=== PATIENT | male | born 1965 | race Caucasian/White ===

== ENCOUNTER 2025-02-01 08:12 | Outpatient (REF) | payer OTHER, SELFPAY ==
--- OUTSIDE RECORDS SUMMARY | 2025-02-01 08:32 | XMS_ITS | Encounter Summary ---
Author Organization [facility] Address [address] [facility] [address] [place] [address] Phone Care Team Providers Care Wood Buffer Name Role Phone Glenny Beckford MD Primary Care Provider [phone] Reason for Visit * Reason Onset Date Comments Med Refill 12/18/2024 Encounter Details Date Type Department Care Team (Late st Contact Info) Description 12/18/2024 Refill [facility] [address] [place] [phone] Kevin Brooks MD [address] [facility] [address] [place] [phone] Social History Tobacco Use Types Packs/Day Years Used Date Smoking Tobacco: Never Alcohol Use Standard Drinks/Week Comments Yes 0 (1 standard drink = 0.6 oz pur e alcohol) Sex and Gender Information Value Date Recorded Sex Assigned at Male 05/31/2023 3:08 PM EDT Legal Sex Male 5:25 PM EST Gender Identity Male 05/31/2023 3:08 PM EDT Sexual Orientation Straight 05/31/2023 3: 08 PM EDT documented as of this encounter Miscellaneous Notes * Telephone Encounter - Dalia Velasquez - 01/02/2025 3:22 PM EST RX ALREADY SENT TO THE PHARMACY ON 12/24/24 . documented in this encounter Plan of Treatment Upcoming Encounters Date Type Department Care Team (Late st Contact Info) Description 02/12/2025 1:00 PM EDT Office Visit [facility] [address] [facility] [address] [place] [phone] Kevin Brooks MD [address] [address] documented as of this encounter Visit Diagnoses Not on filedocumented in this encounter Care Teams Wood Buffer Relationship Specialty Start Date End Date Glenny Beckford MD [address] [facility] [address] [place] [address] PCP - General Cardiology 01/26/23 documented as of this encounter
--- OUTSIDE RECORDS SUMMARY | 2025-02-01 08:32 | XMS_ITS | Clinical Summary ---
Author Organization [facility] Address [address] [facility] [address] [place] [address] Phone Care Team Providers Care Green Prize Packer Name Role Phone Glenny Beckford MD Primary Care Provider [phone] Allergies Active Allergy Reactions Criticality Noted Date Comments Carisoprodol 02/03/2023 Meloxicam Rash Low 02/04/2023 Penicillin G 02/03/2023 Sulfa Antibiotics 02/03/2023 Medications Xarelto 20 MG tablet 3 Active morphine (MSIR) 30 MG tablet 45 mg in the morning. 3 Active carvedilol (COREG) 12.5 MG tablet 3 Active hydrALAZINE 50 MG tablet Take 50 mg by mouth in the morning and 50 mg in the evening and 50 mg before bedtime. 2 Active NIFEdipine XL (PROCARDIA XL) 90 MG 24 hr tablet 3 Active furosemide (LASIX) 20 MG tablet 3 Active losartan (COZAAR) 100 MG tablet 3 Active metFORMIN (GLUCOPHAGE) 500 MG tablet 3 Active glipiZIDE (GLUCOTROL) 5 MG tablet 10 mg 3 Active Semaglutide,0.25 or 0.5MG/DOS, (Ozempic, 0.25 or 0.5 MG/DOSE,) 2 MG/1.5ML solution pen-injector See Instructions, INJECT 0.5MG UNDER THE SKIN ONCE WEEKLY, # 1.5 mL, 5 Refills, 12/28/22 14:08:00 EST, [facility], 28, INJECT 0.5MG UNDER THE SKIN ONCE WEEKLY, 177, cm, 10/29/22 14:06:00 EST, Height, 108.85, kg, 10/29/22 14:06:00 EST, Dry Weight 3 Active gabapentin (NEURONTIN) 600 MG tablet Take 1 tablet by mouth 2 Active allopurinol (ZYLOPRIM) 100 MG tablet 3 Active budesonide-formo terol (SYMBICORT) 160-4.5 MCG/ACT inhaler 3 Active atorvastatin (LIPITOR) 20 MG tablet Take 1 tablet by mouth 2 Active dicyclomine (BENTYL) 10 MG capsule Take 10 mg by mouth 4 (four) times a day (before meals and nightly) Active isosorbide mononitrate (IMDUR) 30 MG 24 hr tablet 3 Active furosemide (LASIX) 40 MG tablet TAKE ONE TABLET BY MOUTH EVERY MORNING AND TAKE ONE TABLET BY MOUTH EVERY EVENING 60 tablet 11 4 Active furosemide (Lasix) 40 MG tablet Take 1 tablet (40 mg total) by mouth in the morning and 1 tablet (40 mg total) in the evening. 60 tablet 11 4 05/25/20 25 Active spironolactone (Aldactone) 50 MG tablet Take 1 tablet (50 mg total) by mouth 1 (one) time each day 90 tablet 2 5 01/17/20 26 Active spironolactone (ALDACTONE) 50 MG tablet TAKE ONE TABLET BY MOUTH EVERY DAY 90 tablet 2 5 Active Active Problems Problem Noted Date Diagnosed Date Hyperlipidemia 04/26/2023 Aortic valve stenosis 04/26/2023 Severe obesity 04/20/2023 Obese class I 04/20/2023 COVID-19 04/20/2023 Cervical radiculopathy 04/20/2023 Hypertensive disorder 02/04/2023 Uncomplicated mild persistent asthma 01/24/2023 Irritable bowel syndrome 01/24/2023 Deep venous thrombosis 01/24/2023 Acute antecubital DVT 08/22/2014 Postphlebetic syndrome with other complication 0 08/13/2014 Hypertension 08/13/2014 Hemochromatosis 08/13/2014 Edema 08/13/2014 Chronic pain syndrome 08/13/2014 Asthma 08/13/2014 Pure hyperglyceridemia 03/28/2013 Type 2 diabetes mellitus without complication Lumbar disc prolapse with radiculopathy 10/07/20 06 Encounters Date Type Department Care Team Description 12/23/2024 Refill [facility] [address] [facility] [place] [address] Kevin Brooks MD 12/18/2024 Refill [facility] [address] [facility] [place] [address] Kevin Brooks MD from Last 3 Months Immunizations Name Administration Dates Next Due Influenza (IM) Preservative Free 09/07/2021 Influenza, Unspecified 10/07/2022,2020,09/11/2020,09/21/2018 ,09/22/2017,09/10/2016,08/21/2014, 3,07/19/2012,01/21/2009 MMR 05/03/2012 Moderna SARS-COV-2 09/24/2021,03/16/2021, 021 Pneumococcal Polysaccharide 04/15/2010 SARS-CoV-2, Unspecified 10/22/2022 Shingrix 06/10/2020,11/01/2019 Td, Unspecified 10/07/1998 Social History Tobacco Use Types Packs/Day Years Used Date Smoking Tobacco: Never Tobacco Cessation:Counseling Given: Not Answered Alcohol Use Standard Drinks/Week Comments Yes 0 (1 standard drink = 0.6 oz pur e alcohol) Sex and Gender Information Value Date Recorded Sex Assigned at Male 05/31/2023 3:08 PM EDT Legal Sex Male 5:25 PM EST Gender Identity Male 05/31/2023 3:08 PM EDT Sexual Orientation Straight 05/31/2023 3: 08 PM EDT Last Filed Vital Signs Vital Sign Reading Time Taken Comments Blood Pressure 131/64 05/08/2024 2:09 PM EDT Pulse 71 05/08/2024 2:09 PM EDT Temperature - - Respiratory Rate - - Oxygen Saturation 97% 05/08/2024 2:09 PM EDT Inhaled Oxygen Concentration - - Weight 108 kg (237 lb 3.2 oz) 05/08/2024 2:09 PM EDT Height - - Body Mass Index - - Plan of Treatment Upcoming Encounters Date Type Department Care Team (Late st Contact Info) Description 02/12/2025 1:00 PM EDT Office Visit [facility] P.. [address] [phone] Kevin Brooks MD [address] [address] Health Maintenance Due Date Last Done Comments Pneumococcal Vaccine: Pediatrics (0 to 5 Years) and At-Risk Patients (6 to 64 Years) (2 of 2 - PCV) 04/15/2011 04/15/2010 Colorectal Cancer Screening: Annual FOBT 2013 Colorectal Cancer Screening: Colonoscopy 2013 Colorectal Cancer Screening: Sigmoidoscopy 2013 Diabetes: Ophthalmology Exam 02/03/2023 Diabetes: Pedal Pulse Checked 02/03/2023 Diabetes: Sensory Foot Exam 02/03/2023 Diabetes: Visual Foot Exam 02/03/2023 Diabetes: Hemoglobin A1C 04/23/2023 01/24/2023 Influenza Vaccine (#1) 2024 2, 09/07/2021, 09/07/2021, Additional history exists Hepatitis B Vaccine Aged Out No longe r eligible based on patient's age to complete this topic Procedures Procedure Name Priority Date/Time Associated Diagnosis Comments EXT RESULT ENTRY Routine 01/24/2023 from Last 3 Months or Most Recently Relevant to Health Maintenance Results * (ABNORMAL) EXT RESULT ENTRY (01/24/2023) WBC 6.9 3.3 - 10.0 10*3/ML Red Blood Cell Count 4.28 Hemoglobin 14.1 13.5 - 17.5 Hematocrit 41.2 41.0 - 53.0 Platelets 219 150 - 399 10*3/UL MCV 96.3 82.0 - 108.0 Sodium 142 137 - 147 Potassium 4.6 3.4 - 5.5 Chloride 105.0 99.0 - 108.0 Anion Gap 8 <=30 MMOL/L Glucose 125 60 - 200 BUN 23(A) 4 - 21 mg/dL Creatinine 0.70 0.60 - 1.30 mg/dL Albumin 4.9 3.5 - 5.0 g/dL Calcium 9.7 8.7 - 10.7 mg/dL Hemoglobin A1C 5.5 4.0 - 6.0 01/24/2023 us Historical Provider LAB BLOOD ORDERABLES Ayleen l Result from Last 3 Months or Most Recently Relevant to Health Maintenance Insurance [facility] Care Teams Green Prize Packer Relationship Specialty Start Date End Date Glenny Beckford MD [address] [place] [address] PCP - General Cardiology 01/26/23
--- OUTSIDE RECORDS SUMMARY | 2025-02-01 08:33 | XMS_ITS | Clinical Summary ---
Author Organization [facility] [address] [facility] Address [address] [place] [address] Phone Care Team Providers Care Senior Web Developer Name Role Phone Elmer Lara MD Primary Care Provider [phone] Allergies Active Allergy Reactions Criticality Noted Date Comments Carisoprodol 02/03/2023 Doxazosin Low blood pressure 01/29/2025 Meloxicam Rash Low 02/04/2023 Penicillin G Unknown 02/02/2023 Sulfa (Sulfonamide Antibiotics) 11/28 Medications Xarelto 20 mg tablet See Instructions, TAKE ONE TABLET BY MOUTH DAILY WITH A MEAL, # 90 each, 3 Refills, Maintenance, 02/29/24 11:14:00 AM EDT, [email or web address], refill when needed, 180, cm, 02/29/24 11:04:00 EDT, Height, 107.5, kg, 02/29/24 11:04:00 EDT, Dry Weight 4 Active albuterol HFA (PROAIR HFA ; PROVENTIL HFA ; VENTOLIN HFA) 90 mcg/actuation inhaler 4 Active carvediloL (COREG) 12.5 mg tablet Take 1 tablet (12.5 mg total) by mouth. 4 Active dicyclomine (BENTYL) 10 mg capsule Take 2 capsules (20 mg total) by mouth. 3 Active furosemide (LASIX) 40 mg tablet 5 Active gabapentin (NEURONTIN) 600 mg tablet Take 1 tablet (600 mg total) by mouth. 4 Active glipiZIDE (GLUCOTROL) 5 mg tablet Take 1 tablet (5 mg total) by mouth. 4 Active hydrALAZINE (APRESOLINE) 50 mg tablet Take 1 tablet (50 mg total) by mouth. 4 Active isosorbide mononitrate (IMDUR) 30 mg 24 hr tablet Take 1 tablet (30 mg total) by mouth. 4 Active losartan (COZAAR) 100 mg tablet See Instructions, TAKE ONE TABLET BY MOUTH EVERY DAY, # 90 tablet, 3 Refills, 08/20/24 4:42:00 PM EDT, [email or web address], 180, cm, 06/11/24 14:07:00 EDT, Height, 106.8, kg, 06/11/24 14:07:00 EDT, Dry Weight 4 Active metFORMIN (GLUCOPHAGE) 500 mg tablet Take 2 tablets (1,000 mg total) by mouth. 4 Active Ozempic 0.25 mg or 0.5 mg (2 mg/3 mL) injection pen See Instructions, INJECT 0.5MG UNDER THE SKIN ONCE WEEKLY, # 3 mL, 5 Refills, Maintenance, 11/06/24 12:48:00 PM EST, [facility], 180, cm, 08/28/24 13:59:00 EDT, Height, 108.2, kg, 08/28/24 13:59:00 EDT, Dry Weight 4 Active spironolactone (ALDACTONE) 50 mg tablet Take 1 tablet (50 mg total) by mouth. 3 Active tiZANidine (ZANAFLEX) 2 mg tablet Take 1 tablet (2 mg total) by mouth. 3 Active allopurinoL (ZYLOPRIM) 100 mg tablet Take 1 tablet (100 mg total) by mouth. 4 01/13/20 Active Problems Problem Noted Date Diagnosed Date Diabetes mellitus type 2, uncomplicated 12/12/19 Hemochromatosis 12/12/2024 Assessment & Plan (12/12/2024 4:52 PM EST): Please contact [facility] hematology group to re-establish care and monitoring of this disease Phlebotomy as needed per their recommendations. Deep vein thrombosis (DVT) 12/12/2024 Hyperlipidemia 12/12/2024 Hypertension 12/12/2024 Irritable bowel syndrome 12/12/2024 Mild persistent asthma 12/12/2024 Herniation of lumbar intervertebral disc with ra diculopathy 12/12/2024 Chronic pain syndrome 12/12/2024 Aortic stenosis 12/12/2024 Protein S deficiency 12/12/2024 Postphlebitic syndrome 12/04/2024 Encounters Date Type Department Care Team Description 01/03/2025 Telephone Gastroenterology - [place] [address] [place] [phone] Vickie Edmonds LPN Anticoagulation (Colonoscopy on 02/04/[address] Sepulveda) 12/13/2024 Telephone Gastroenterology - [address] [facility] [address] [place] [phone] Margret Gomez MA 12/12/2024 1:40 PM EST Office Visit Gastroenterology - [address] [facility] [address] [place] [phone] Madisyn Gay PA Colon cancer screening (Primary Dx); Hereditary hemochromatosis (CMS/HCC) 12/12/2024 Telephone Gastroenterology - [address] [facility] [address] [place] [phone] Raymond Sepulveda MD 12/07/2024 Telephone Gastroenterology - [address] [facility] [address] [place] [phone] Madisyn Gay PA from Last 3 Months Surgical History Surgery Date Site/Laterality Comments COLONOSCOPY 10/22/2015 TAx2 recall 5 years Family History Medical History Relation Name Comments Colon polyps Brother Colon cancer Father Colon polyps Mother Relation Name Status Comments Brother Father Alive Mother Social History Tobacco Use Types Packs/Day Years Used Date Smoking Tobacco: Never Smokeless Tobacco: Never Alcohol Use Standard Drinks/Week Comments Yes 0 (1 standard drink = 0.6 oz pur e alcohol) occasional Sex and Gender Information Value Date Recorded Sex Assigned at Not on file Legal Sex Male 7:01 PM EST Gender Identity Not on file Sexual Orientation Not on file Obstetrics History Last Filed Vital Signs Vital Sign Reading Time Taken Comments Blood Pressure - - Pulse - - Temperature - - Respiratory Rate - - Oxygen Saturation - - Inhaled Oxygen Concentration - - Weight 108 kg (238 lb) 01/29/2025 8:00 AM EST Height 179.7 cm (5' 10.75 ) 01/29/2025 8:[address] Body Mass Index 33.43 01/29/2025 8:00 AM EST Plan of Treatment Upcoming Encounters Date Type Department Care Team (Late st Contact Info) Description 02/04/2025 9:30 AM EDT Hospital Encounter [facility] [address] [place] [address] Raymond Sepulveda MD [address] [address] Health Maintenance Due Date Last Done Comments Diabetes: Annual GFR (Glomerular Filtration Rate) 1964 Diabetes: Annual Foot Exam 1974 Diabetes: Annual Retina Eye Exam 1974 DTaP,Tdap,and Td Vaccines (2 - Td or Tdap) 10/07/2008 10/07/1998 Pneumococcal Vaccine: 50+ Years (2 of 2 - PCV) 04/15/2011 04/15/2010 Pneumococcal Vaccine: Pediatrics (0 to 5 Years) and At-Risk Patients (6 to 64 Years) (2 of 2 - PCV) 04/15/2011 04/15/2010 RSV Immunization Patients 60+ Years Old (1 - Risk 60-74 years 1-dose series) 2024 Cholesterol Screening (Lipid Panel) 12/04/2024 Colorectal Cancer Screening: Colonoscopy 12/04/2024 Depression Screening 12/04/2024 HIV Screening 12/04/2024 Hepatitis C Screening 12/04/2024 Social Influencers of Health Screening 12/04/2024 Diabetes: Annual Urine Albumin-Creatinine Ratio (uACR) 12/12/2024 Diabetes: Blood Sugar Control Test (HGBA1C) 12/12/2024 Hypertension/CHF/CAD Annual BMP Blood Test 12/12/2024 MMR Vaccines Aged Out 05/03/2012 No longer eligi ble based on patient's age to complete this topic Zoster Vaccines Completed 06/10/2020, 11/01/2019 COVID-19 Vaccine Completed 08/27/2024, , 10/22/2022, Additional history exists Influenza Vaccine Completed 09/17/2024, , 10/07/2022, Additional history exists HIB Vaccines Aged Out No longer eligi ble based on patient's age to complete this topic HPV Vaccines Aged Out No longer eligi ble based on patient's age to complete this topic Hepatitis A Vaccines Aged Out No long er eligible based on patient's age to complete this topic Hepatitis B Vaccines Aged Out No long er eligible based on patient's age to complete this topic IPV Vaccines Aged Out No longer eligi ble based on patient's age to complete this topic Meningococcal ACWY Vaccine Aged Out N o longer eligible based on patient's age to complete this topic Meningococcal B Vacine Aged Out No lo nger eligible based on patient's age to complete this topic RSV Immunization Patients Under 20 months Aged Out No longer eligible based on patient's age to complete this topic Varicella Vaccines Aged Out No longer eligible based on patient's age to complete this topic [facility] [place] [place] [address] [facility] Care Teams Senior Web Developer Relationship Specialty Start Date End Date Elmer Lara MD [address] [phone] PCP - General Internal Medicine 12/04/24
--- OUTSIDE RECORDS SUMMARY | 2025-02-01 08:33 | XMS_ITS | Encounter Summary ---
Author Organization [facility] Address [address] [place] [address] Care Team Providers Care Slab Lifting Engineer Name Role Phone Elmer Lara MD Primary Care Provider [phone] Reason for Visit * Reason Onset Date Comments Anticoagulation 01/03/[address] Sepulveda Encounter Details Date Type Department Care Team ([facility] st Contact Info) Description 01/03/2025 Telephone Gastroenterology - [place] [address] [facility] [address] [place] [address] Vickie Edmonds LPN Anticoagulation (Colonoscopy on 02/04/[address] Sepulveda) Social History Tobacco Use Types Packs/Day Years Used Date Smoking Tobacco: Never Smokeless Tobacco: Never Alcohol Use Standard Drinks/Week Comments Yes 0 (1 standard drink = 0.6 oz pur e alcohol) occasional Sex and Gender Information Value Date Recorded Sex Assigned at Not on file Legal Sex Male 7:01 PM EST Gender Identity Not on file Sexual Orientation Not on file documented as of this encounter Progress Notes * Vickie Edmonds LPN - 01/04/2025 10:42 AM EST Spoke with pt, states he was already given instructions to hold xarelto for 2 days before procedure. * Vickie Edmonds LPN - 01/03/2025 11:39 AM EST Colonoscopy on 02/04/[address] Sepulveda Did pt get instructions to hold xarelto at office visit on 12/12/24? Left msg for pt to call back. documented in this encounter Plan of Treatment Upcoming Encounters Date Type Department Care Team (Late st Contact Info) Description 02/04/2025 9:30 AM EDT Hospital Encounter [facility] Endoscopy [address] [place] [phone] Raymond Sepulveda MD [address] [facility] [address] [place] [address] documented as of this encounter Visit Diagnoses Not on filedocumented in this encounter Care Teams Slab Lifting Engineer Relationship Specialty Start Date End Date Elmer Lara MD [address] [facility] [address] [place] [address] PCP - General Internal Medicine 12/04/24 documented as of this encounter
== END 2025-02-01 08:13 | disposition home or self-care (01) ==
LOC: HO.BBR 08:12
PROVIDERS: PCP Internal Medicine; Visit Provider Hospitalist
DX: Z13.89 Encounter for screening for other disorder (principal)

== ENCOUNTER 2025-05-06 08:01 | Outpatient (REF) | payer OTHER, SELFPAY ==
--- OUTSIDE RECORDS SUMMARY | 2025-05-06 08:04 | XMS_ITS | Clinical Summary ---
Author Organization [facility] Address [address] [place] [phone] Phone Care Team Providers Care Ecommerce Marketing Specialist Name Role Phone Glenny Beckford MD Primary Care Provider [phone] Allergies Active Allergy Reactions Criticality Noted Date [...] Encounters Date Type Department Care Team Description 04/03/2025 11:15 AM EDT Office Visit [facility] [address] [facility] [address] [place] [phone] Kevin Brooks MD Hypertensive disorder (Primary Dx) 04/03/2025 Office Communication [facility] [address] [facility] [address] [place] [phone] Dalia Velasquez from Last 3 Months Immunizations Immunization Administration Dates Next Due Influenza (IM) Preservative Free 09/07/2021 Influenza, Unspecified 10/07/2022,2020,09/11/2020,09/21/2018 ,09/22/2017,09/10/2016,08/21/2014, 3,07/19/2012,01/21/2009 MMR 05/03/2012 Moderna SARS-COV-2 09/24/2021,03/16/2021, 021 Pneumococcal Polysaccharide 04/15/2010 SARS-CoV-2, Unspecified 10/22/2022 Shingrix 06/10/2020,11/01/2019 Td, Unspecified 10/07/1998 Social History Tobacco Use Types Packs/Day Years Used Date Smoking Tobacco: Never Smokeless Tobacco: Never Tobacco Cessation:Counseling Given: Not Answered [...] Sign Reading Time Taken Comments Blood Pressure 115/58 04/03/2025 11:16 AM EDT Pulse 75 04/03/2025 11:16 AM EDT Temperature - - Respiratory Rate - - Oxygen Saturation 97% 05/08/2024 2:09 PM EDT Inhaled Oxygen Concentration - - Weight 107 kg (234 lb 12.8 oz) 04/03/2025 11:16 AM EDT Height - - Body Mass Index - - Plan of Treatment Upcoming Encounters Date Type Department Care Team (Late st Contact Info) Description 10/02/2025 1:45 PM EST Office Visit [facility] [address] [address] Kevin Brooks MD [address] [address] Health Maintenance Due Date Last Done Comments Pneumococcal Vaccine: 50+ Years (2 of 2 - PCV) 04/15/2011 04/15/2010 Colorectal Cancer Screening: Annual FOBT 2013 Colorectal Cancer Screening: Colonoscopy 2013 Colorectal Cancer Screening: Sigmoidoscopy 2013 Diabetes: Ophthalmology Exam 02/03/2023 Diabetes: Pedal Pulse Checked 02/03/2023 Diabetes: Sensory Foot Exam 02/03/2023 Diabetes: Visual Foot Exam 02/03/2023 Diabetes: Hemoglobin A1C 03/04/2025 12/04/2024, 02/05/2023 Influenza Vaccine (Season Ended) 2025 10/07/2022, 09/07/2021, 09/07/2021, Additional history exists Pneumococcal Vaccine: Peds (0 to 5 Years) and At-Risk Patients (6 to 49 Years) Discontinued 04/15/2010 Hepatitis B Vaccine Aged Out No longe r eligible based on patient's age to complete this topic Procedures Procedure Name Priority Date/Time Associated Diagnosis Comments EXT RESULT ENTRY Routine 12/04/2024 from Last 3 Months or Most Recently Relevant to Health Maintenance Results * (ABNORMAL) EXT RESULT ENTRY (12/04/2024) WBC 8.6 3.3 - 10.0 10*3/ML Red Blood Cell Count 4.04 Hemoglobin 13.7 13.5 - 17.5 Hematocrit 40.3(A) 41.0 - 53.0 Platelets 243 150 - 399 10*3/UL MCV 100.0 82.0 - 108.0 Neutrophils Absolute 5.10 1.30 - 8.30 10*3/UL Lymphocytes Absolute 2.40 1.40 - 2.90 10*3/UL Monocytes Absolute 0.80 0.20 - 0.80 10*3/UL Eosinophils Absolute 0.20 0.20 - 0.70 10*3/UL Iron 281 UG/DL Iron Saturation (TSat) 90 % TIBC 313 ug/dL UIBC (EXTERNAL RESULT ENTRY) 32 Sodium 143 137 - 147 Potassium 4.3 3.4 - 5.5 Chloride 102.0 99.0 - 108.0 Carbon Dioxide 23 mmol/L Anion Gap 18.0 <=30 MMOL/L Glucose 149 60 - 200 BUN 23(A) 4 - 21 mg/dL Creatinine 0.94 0.60 - 1.30 mg/dL Total Protein 7.3 6.4 - 8.2 G/DL BUN/Creatinine Ratio 24 Albumin 4.8 3.5 - 5.0 g/dL Calcium 9.6 8.7 - 10.7 mg/dL eGFR Non-Afr Iranian 93 Total Bilirubin 0.50 MG/DL ALT (SGPT) 25 U/L AST (SGOT) 25 U/L Alkaline Phosphatase 55 U/L Hemoglobin A1C 5.6 4.0 - 6.0 12/04/2024 us Historical Provider LAB BLOOD ORDERABLES Edit ed Result - Final from Last 3 Months or Most Recently Relevant to Health Maintenance Insurance [facility] Care Teams Ecommerce Marketing Specialist Relationship Specialty Start Date End Date Glenny Beckford MD [address] [place] [address] PCP - General Cardiology 01/26/23
== END 2025-05-06 08:02 | disposition home or self-care (01) ==
LOC: HO.BBR 08:01
PROVIDERS: PCP Internal Medicine; Visit Provider Hospitalist
DX: E83.110 Hereditary hemochromatosis (principal)
CPT/HCPCS: 85018; 99195

== ENCOUNTER 2025-08-06 08:01 | Outpatient (REF) | payer OTHER, SELFPAY | END 2025-08-06 08:02 | disposition home or self-care (01) | LOC: HO.BBR 08:01 | PROVIDERS: PCP Internal Medicine; Visit Provider Hospitalist | DX: Z13.89 Encounter for screening for other disorder (principal) ==